=== PATIENT | male | born 2000 | race Caucasian/White ===

== ENCOUNTER 2025-04-27 19:17 | Emergency (ER) | payer BC, SELFPAY ==
[2025-04-27 19:22] VITALS: BP 140/77
[2025-04-27] MEDS: ADACEL 0.5 ML IM (22:01)
[2025-04-27] MEDS: RABAVERT RABIES VACC W-DILUENT 2.5 UNIT IM (22:02)
[2025-04-27] MEDS: AUGMENTIN 875 MG/125 MG 1 TABLET PO (22:04)
--- NOTE | 2025-04-27 22:13 | ED.GENMED ---
History of Present Illness
General
Chief Complaint: Rabies
Source: patient
Exam Limitations: none
Time Seen by Provider: 04/27/25 21:10
Nursing documentation reviewed up to this point in time: agreed with
History of Present Illness
History of Present Illness:
Patient states his friends caught a ground hog. He tried to pet it and ground hog bit his finger. Sustained bite to right distal index finger. Incident occurred3 days ago. Brought to ED by father for rabies series.
Past History
Past History
ED Past Medical History: None
Review of Systems
Review of Systems
Allergies reviewed?: Yes
All Other Systems: ROS reviewed and negative except as documented in HPI and ROS
Constitutional: Reports no symptoms
EENT: Reports no symptoms
Respiratory: Reports no symptoms
Cardiac: Reports no symptoms
ABD/GI: Reports no symptoms
Musculoskeletal: Reports no symptoms
Skin: Reports other (animal bite right distal index finger)
Neurological: Reports no symptoms
Psychiatric: Reports no symptoms
Phy Exam
General Physical Exam
General Presentation: well appearing and no apparent distress
General age: appears stated age
General Skin: warm and dry
General Habitus: normal
Musculoskeletal Exam
Musculoskeletal Exam: neuro vasc intact
Skin Exam
Skin Exam: normal color, warm/dry and no rash
Psychiatric Exam
Psychiatric Exam: normal mood/affect
Course
Orders/Labs/Results
Orders:
Orders
04/27/25 21:15
Tetanus/Diphth/Acelpertussis [Adacel] 0.5 ml IM .ONCE ONE
04/27/25 21:16
Rabies Immune Globulin/Pf [HyperRAB] 1,466 unit IM NOW STA
04/27/25 21:21
Amoxicillin 875 mg/Clav 125 mg [Augmentin 875 mg/125 mg] 1 tablet PO NOW STA
04/27/25 21:42
Rabies Immune Globulin/Pf [HyperRAB] 1,466 unit IM NOW STA
04/27/25 22:00
Rabies Vaccine (Pcec)/Pf [Rabavert Rabies Vacc W-Diluent] 2.5 unit IM .ONCE ONE
Vital Signs
Initial and Last Documented VS:
Initial Vital Signs
Temp Pulse Resp BP Pulse Ox
98.7 F 68 18 140/77 99
04/27/25 19:22 04/27/25 19:22 04/27/25 19:22 04/27/25 19:22 04/27/25 19:22
Last Documented Vital Signs
Temp Pulse Resp BP Pulse Ox
98.7 F 68 18 140/77 99
04/27/25 19:22 04/27/25 19:22 04/27/25 19:22 04/27/25 19:22 04/27/25 19:22
*Pulse Oximetry
SaO2: 99
Oxygen Mode of Delivery: Room air
Patient hypoxic: no
*Critical Care Note
Total Time (30-74mins, 75-104mins- exclusive of procedures): Not Applicable
ED Attending Note
-
Portions of this chart may have been created with voice recognition software.� Occasional wrong word or��sound alike� substitutions may have occurred due to the inherent limitations of voice recognition software.
Discharge Plan
Departure
Patient Disposition: Home (Routine Discharge)
Date of Disposition: 04/27/25
Time of Disposition: 21:18
Patient with high blood pressure during this ER visit?: No
Condition: Good
Covid-19: Not Applicable
Discharge Problem:
Bite by animal
Instructions: Animal Bites (DC)
Prescriptions:
New
RabAvert (PF) 2.5 unit Suspension For Reconstitution
1 ml IM . DIRECTED Qty: 3 0RF
Rx Instructions:
See Rabies Vaccine Post Exposure Prophylaxis Instruction Sheet for Dosing Instructions
amoxicillin-pot clavulanate 875-125 mg tablet
1 tab PO BID Qty: 10 0RF
Stand Alone Forms: Rabies Vaccine Post Exp Dosing
Interventions
Interventions:
*ED COVID-19 Vaccine History Last Done: 04/27/25 19:22
Discharge Date and Time
Print Language: [place]
Skin Exam
Bite
Right Distal Second Finger:
Type: animal
Skin has: puncture wounds
Surrounding area around bite has: no evidence of erythema
Distal skin color and temperature: normal-warm & good color
Normal distal neurovascular exam: Yes
== END 2025-04-27 22:22 | disposition home or self-care (01) ==
LOC: EMR 19:17
PROVIDERS: EMERGENCY PHYSICIAN Emergency Medicine
DX: Z20.3 Contact with and (suspected) exposure to rabies (principal); Z23 Encounter for immunization
CPT/HCPCS: 99283; 90471; 90472; 96372; 90375; 90675; 90715

== ENCOUNTER 2025-05-05 15:11 | Outpatient (RCR) | payer BC, SELFPAY ==
[2025-04-30 15:16] VITALS: BP 146/74
[2025-04-30] MEDS: RABAVERT RABIES VACC W-DILUENT 2.5 UNIT IM (15:23)
[2025-05-05] MEDS: RABAVERT RABIES VACC W-DILUENT 2.5 UNIT IM (15:25)
== END 2025-05-06 11:09 | disposition home or self-care (01) ==
LOC: OID 15:11
PROVIDERS: ATTENDING PHYSICIAN Emergency Medicine
DX: Z20.3 Contact with and (suspected) exposure to rabies (principal); Z23 Encounter for immunization
CPT/HCPCS: 90471; 90675

== ENCOUNTER 2025-05-12 15:13 | Outpatient (RCR) | payer BC, SELFPAY ==
[2025-05-12] MEDS: RABAVERT RABIES VACC W-DILUENT 2.5 UNIT IM (15:15)
[2025-05-12 15:20] VITALS: BP 115/81
== END 2025-05-13 08:41 | disposition home or self-care (01) ==
LOC: OID 15:13
PROVIDERS: ATTENDING PHYSICIAN Emergency Medicine
DX: Z20.3 Contact with and (suspected) exposure to rabies (principal); Z23 Encounter for immunization
CPT/HCPCS: 90471; 90675